=== PATIENT | female | born 1995 | race Native Hawaiian/Other Pacific Islander ===

== ENCOUNTER 2020-03-19 21:43 | Emergency (ER) | payer MEDICAID ==
[2020-03-19 22:14] LABS: Basophils % (Auto) 0.4 % (0.0-1.8); Eosinophils # (Auto) 0.1 K/mm3 (0.0-0.4); Eosinophils % (Auto) 1.4 % (0.0-4.3); Hematocrit 37.8 % (30.3-42.9); Hemoglobin 11.8 gm/dl (10.1-14.3); Lymphocytes # (Auto) 3.7 K/mm3 (1.2-5.4); Lymphocytes % (Auto) 34.5 % (13.4-35.0); Mean Corpuscular HGB Conc 31 % (30-34); Mean Corpuscular Volume 80 fl (79-97); Monocytes # (Auto) 0.6 K/mm3 (0.0-0.8); Monocytes % (Auto) 5.8 % (0.0-7.3); Platelet Count 274 K/mm3 (140-440); Red Blood Count 4.74 M/mm3 (3.65-5.03); Red Cell Distribution Width 14.5 % (13.2-15.2)
[2020-03-19] MEDS ORDERED: ACETAMINOPHEN 500 MG TAB PO ONE (22:18)
--- NOTE | 2020-03-19 22:29 | Emergency Department Report ---
ED Female HPI - General Chief complaint: Vaginal Bleeding Stated complaint: ABD PAIN/6WKS PREG/BLEEDING Source: patient Mode of arrival: Ambulatory Limitations: No Limitations - History of Present Illness Initial comments: Patient is A0 24-year-old female is approximately 5 weeks gestation and with no past medical history who presents to the ED with complaint of acute onset persistent pelvic pain with vaginal bleeding for the last 10 hours, bleeding being heavy in the last 3 hours prior to arrival. Patient states that the pain is sharp, persistent and crampy. Patient denies fall, heavy lifting, traumatic injury, fever, chills, nausea, vomiting, diarrhea, dysuria, urinary frequency and urgency, vaginal discharge, cough, sore throat, chest pain, low back pain or shortness of breath. MD Complaint: vaginal bleeding, pelvic pain -: Sudden, hour(s) (10) Location: suprapubic Radiation: non-radiating Severity: moderate Severity scale (0 -10): 5 Quality: cramping, sharp, aching Consistency: intermittent Improves with: none Worsens with: none Are you Now?: Yes (Approx 6 weeks gestation) Associated Symptoms: denies other symptoms, vaginal bleeding, abdominal pain. denies: nausea/vomiting, fever/chills, headaches, loss of appetite, dysuria, chad rtness of breath, syncope, weakness - Related Data Sexually active: Yes : 1 Para: 0 A: 0 Previous Rx's Medication Instructions Recorded Last Taken Type Acetaminophen [Mapap] 500 mg PO Q6H PRN #30 capsule 03/20/20 Unknown Rx Allergies Allergy/AdvReac Type Severity Reaction Status Date / Time No Known Allergies Allergy Verified 03/19/20 21:50 ED Review of Systems ROS: Stated complaint: ABD PAIN/6WKS PREG/BLEEDING Other details as noted in HPI Constitutional: denies: chills, fever Eyes: denies: eye pain, eye discharge, vision change ENT: denies: ear pain, throat pain Respiratory: denies: cough, shortness of breath, wheezing Cardiovascular: denies: chest pain, palpitations Endocrine: no symptoms reported Gastrointestinal: abdominal pain (Suprapubic pain). denies: nausea, vomiting, diarrhea Genitourinary: abnormal menses (Vaginal bleeding). denies: urgency, dysuria, discharge Musculoskeletal: denies: back pain, joint swelling, arthralgia Skin: denies: rash, lesions Neurological: denies: headache, weakness, paresthesias Psychiatric: denies: anxiety, depression Hematological/Lymphatic: denies: easy bleeding, easy bruising ED Past Medical Hx - Past Medical History Previous Medical History?: No - Surgical History Past Surgical History?: No - Social History Smoking Status: Never Smoker Substance Use Type: None - Medications Home Medications: Home Medications Medication Instructions Recorded Confirmed Last Taken Type Acetaminophen [Mapap] 500 mg PO Q6H PRN #30 capsule 03/20/20 Unknown Rx ED Physical Exam - General Limitations: No Limitations General appearance: alert, in no apparent distress - Head Head exam: Present: atraumatic, normocephalic, normal inspection - Eye Eye exam: Present: normal appearance, PERRL, EOMI Pupils: Present: normal accommodation - ENT ENT exam: Present: normal exam, normal orophraynx, mucous membranes moist, TM's normal bilaterally, normal external ear exam - Neck Neck exam: Present: normal inspection, full ROM - Respiratory Respiratory exam: Present: normal lung sounds bilaterally. Absent: respiratory distress, wheezes, rales, rhonchi, chest wall tenderness, accessory muscle use, prolonged expiratory - Cardiovascular Cardiovascular Exam: Present: regular rate, normal rhythm, normal heart sounds. Absent: systolic murmur, diastolic murmur, rubs, gallop - GI/Abdominal GI/Abdominal exam: Present: soft, tenderness (Palpable mild suprapubic tenderness), normal bowel sounds. Absent: guarding, rebound, hyperactive bowel sounds, hypoactive bowel sounds - Bi-manual exam: Present: other (Pelvic exam deferred) - Extremities Exam Extremities exam: Present: normal inspection, full ROM, normal capillary refill - Back Exam Back exam: Present: normal inspection, full ROM. Absent: tenderness, CVA tenderness (R), CVA tenderness (L), muscle spasm, vertebral tenderness - Neurological Exam Neurological exam: Present: alert, oriented X3, CN II-XII intact, normal gait, reflexes normal - Psychiatric Psychiatric exam: Present: normal affect, normal mood - Skin Skin exam: Present: warm, dry, intact, normal color. Absent: rash ED Course Vital Signs 03/19/20 21:47 Temperature 98.0 F Pulse Rate 77 Respiratory 16 Rate Blood Pressure 116/75 O2 Sat by Pulse 100 Oximetry ED Medical Decision Making - Lab Data Result diagrams: 03/19/20 21:51 03/19/20 22:42 - Radiology Data Radiology results: report reviewed, image reviewed Findings [facility] [address] [place] [address] Ultrasound Report Signed Patient: NIMA JARQUIN MR#: [id number] : 1995 Acct:[id number] Age/Sex: 24 / F ADM Date: 03/19/20 Loc: ED Attending Dr: Ordering Physician: EDER GALLEGO Date of Service: 03/19/20 Procedure(s): US OB transvaginal Accession Number(s): [id number] cc: EDER GALLEGO ULTRASOUND OBSTETRIC Indication: Pelvic pain, vaginal bleeding, Findings: There is a single, living intrauterine . Gestational sac = 6 cm = 5 weeks, 2 day(s). No pole identified. The ovaries are normal. There is no free fluid. Impression: Early intrauterine gestational sac, as above. Close attention on follow-up recommended. Signer Name: Gage Sheffield MD Signed: 03/20/2020 12:12 AM Workstation Name: [id number] Transcribed By: BC Dictated By: Gage Sheffield MD Electronically Authenticated By: Gage Sheffield MD Signed Date/Time: 03/20/2011 DD/ TD/TT: - Medical Decision Making This is A0 24-year-old female is approximately 5 weeks gestation and with no past medical history who presents to the ED with complaint of acute onset persistent pelvic pain with vaginal bleeding for the last 10 hours, bleeding being heavy in the last 3 hours prior to arrival. Patient states that the pain is sharp, persistent and crampy. In the ED, patient is alert and oriented x3 and is not in any distress but appears to be uncomfortable in pain. Patient was treated for pain with Tylenol in the ED and lab test results were reviewed and showed hCG quant of 1247. The rest of the lab test results were nonactionable. The transvaginal ultrasound showed a single, living intrauterine , with no pole identified. The gestational sac measures approximately 6 cm, consistent with approximately 5 weeks, 2 day(s). The ovaries are normal. There is no free fluid. Close attention on follow-up recommended. On reevaluation, patient's pain is well controlled with medications. Patient was discharged home and advised to take Tylenol as needed for pain and to maintain a complete pelvic rest with no physical or strenuous or sexual activity and to follow-up with the LITERATURE PROFESSOR physician or return to the ED within 48 hours for serial hCG quant studies repeat. Patient was otherwise advised to return to the ED immediately if symptoms get worse. - Differential Diagnosis Ectopic ; Threatened miscarriage; UTI; Subchorionic bleed; Cysts Critical care attestation.: If time is entered above; I have spent that time in minutes in the direct care of this critically ill patient, excluding procedure time. ED Disposition Clinical Impression: Threatened miscarriage in early Abdominal pain in Qualifiers: Trimester: first trimester Qualified Code(s): O26.891 - Other specified related conditions, first trimester Disposition: TO HOME OR SELFCARE Is pt being admited?: No Does the pt Need Aspirin: No Condition: Stable Instructions: Threatened Miscarriage (ED), Abdominal Pain in (ED) Additional Instructions: Maintain a complete pelvic rest with no strenuous or physical or sexual activity. Take Tylenol as needed for pain and follow-up with your LITERATURE PROFESSOR physician or return to the ED within 48 hours for repeat serial hCG quant studies to ascertain the viability of the . Otherwise return to the ED immediately if symptoms get worse. Prescriptions: Acetaminophen [Mapap] 500 mg PO Q6H PRN #30 capsule PRN Reason: Pain , Severe (7-10) Referrals: LANE REDDY MD [Staff Physician] - 2-3 Days (FOLLOW UP WITHIN 48 HOURS FOR SERIAL REPEAT HCG QUANT STUDIES) Time of Disposition: 00:44 Print Language: PASHTO
[2020-03-19 23:09] LABS: Bilirubin,Urine NEG (Negative); Blood,Urine LG (Negative); Color,Urine Straw (Yellow); Mucus,Urine FEW /HPF; Protein,Urine <15 mg/dL mg/dL (Negative); Urobilinogen,Urine < 2.0 mg/dL (<2.0)
--- NOTE | 2020-03-20 00:16 | Ultrasound Report ---
ULTRASOUND OBSTETRIC Indication: Pelvic pain, vaginal bleeding, Findings: There is a single, living intrauterine . Gestational sac = 6 cm = 5 weeks, 2 day(s). No pole identified. The ovaries are normal. There is no free fluid. Impression: Early intrauterine gestational sac, as above. Close attention on follow-up recommended. Signer Name: Gage Sheffield MD Signed: 03/20/2020 12:12 AM Workstation Name: [id number]
[2020-03-20 00:43] VITALS: BP 116/75
[2020-03-20 00:48] LABS: Alanine Aminotransferase 33 units/L (7-56); Albumin 4.5 g/dL (3.9-5); BUN/Creatinine Ratio 13; Blood Urea Nitrogen 8 mg/dL (7-17); Calcium 8.8 mg/dL (8.4-10.2); Hemolysis Index 3
== END 2020-03-20 01:10 | disposition home or self-care (01) ==
LOC: ED 21:43
DX: O20.0 Threatened abortion (principal); O26.891 Other specified pregnancy related conditions, first trimester; Z79.899 Other long term (current) drug therapy; Z3A.01 Less than 8 weeks gestation of pregnancy
CPT/HCPCS: 36415; 76801; 76817; 80053; 81001; 84702; 85025; 86900; 86901

== ENCOUNTER 2021-04-25 13:49 | Outpatient (CLI) | payer MEDICAID ==
[2021-04-25 14:22] VITALS: BP 100/60
[2021-04-25] MEDS ORDERED: LACTATED RINGERS 1,000 ML IV ONE (14:22)
[2021-04-25 14:48] LABS: Bilirubin,Urine NEG (Negative); Blood,Urine NEG (Negative); Color,Urine Colorless (Yellow); Protein,Urine <15 mg/dL mg/dL (Negative); RBC,Urine < 1.0 /HPF (0.0-6.0); Urobilinogen,Urine < 2.0 mg/dL (<2.0); WBC,Urine < 1.0 /HPF (0.0-6.0)
== END 2021-04-25 15:35 | disposition home or self-care (01) ==
LOC: TRG 13:49 → APU 13:53 → TRG 15:35
PROVIDERS: ATTEND Obstetrics & Gynecology
DX: O36.8120 Decreased fetal movements, second trimester, not applicable or unspecified (principal); Z3A.26 26 weeks gestation of pregnancy
CPT/HCPCS: 59025; 81001

== ENCOUNTER 2021-07-25 09:09 | Outpatient (CLI) | payer MEDICAID ==
[2021-07-25 10:36] VITALS: BP 114/79
== END 2021-07-25 13:23 | disposition home or self-care (01) ==
LOC: TRG 09:09 → APU 09:11 → TRG 13:23
PROVIDERS: ATTEND Obstetrics & Gynecology
DX: Z34.93 Encounter for supervision of normal pregnancy, unspecified, third trimester (principal); Z3A.39 39 weeks gestation of pregnancy
CPT/HCPCS: 59020

== ENCOUNTER 2021-07-25 22:27 | Inpatient (IN) | payer MEDICAID ==
[2021-07-26] MEDS ORDERED: LIDOCAINE (2%) 20 MG/1 ML VIAL 20 ML MDV INFILTRATI ONE ×2 (01:49→13:44)
[2021-07-26] MEDS ORDERED: fentaNYL 100 MCG/2 ML INJ IV PRN (01:49)
[2021-07-26] MEDS ORDERED: miSOPROStol 200 MCG TAB PR PRN (01:49)
[2021-07-26] MEDS ORDERED: MINERAL OIL 30 ML ORAL LIQD PO PRN (01:49)
[2021-07-26] MEDS ORDERED: METHYLERGONOVINE MALEATE 0.2 MG/ML VIAL IM PRN (01:49)
[2021-07-26] MEDS ORDERED: ONDANSETRON 4 MG/2 ML INJ IV PRN ×2 (01:49→03:39)
[2021-07-26] MEDS ORDERED: LOPERAMIDE 2 MG CAP PO PRN (01:49)
[2021-07-26] MEDS ORDERED: ACETAMINOPHEN 325 MG TAB PO PRN (01:49)
[2021-07-26] MEDS ORDERED: BUTORPHANOL 2 MG/1 ML INJ IV PRN (01:49)
[2021-07-26] MEDS ORDERED: ePHEDrine SULFATE 50 MG/1 ML INJ IV PRN ×2 (01:49→03:39)
[2021-07-26] MEDS ORDERED: OXYTOCIN 10 UNIT/1 ML INJ IM PRN (01:49)
[2021-07-26] MEDS ORDERED: TERBUTALINE 1 MG/1 ML INJ SUB-Q PRN (01:49)
[2021-07-26] MEDS ORDERED: AMPICILLIN/NS 2 GM/100 ML 2 GM/100 ML BAG IV ONE (01:49)
[2021-07-26] MEDS ORDERED: CARBOPROST TROMETHAMINE 250 MCG/1 ML INJ IM PRN (01:49)
[2021-07-26] MEDS ORDERED: OXYTOCIN DRIP 30 UNITS/500 ML BAG IV SCH (02:00)
[2021-07-26 02:40] LABS: Hematocrit 38.3 % (30.3-42.9); Mean Corpuscular HGB Conc 34 % (30-34); Mean Corpuscular Volume 81 fl (79-97); Platelet Count 172 K/mm3 (140-440); Red Blood Count 4.72 M/mm3 (3.65-5.03)
[2021-07-26] MEDS: LACTATED RINGERS 1,000 ML IV SCH ×3 (02:58→06:17)
[2021-07-26] MEDS ORDERED: diphenhydrAMINE 50 MG/ML VIAL IV PRN (03:39)
[2021-07-26] MEDS ORDERED: NALOXONE 2 MG/2 ML INJ IV PRN (03:39)
[2021-07-26] MEDS ORDERED: LACTATED RINGERS 250 ML IV SOLN IV ONE (03:39)
[2021-07-26] MEDS ORDERED: NalbUPHINE 10 MG/1 ML INJ IV PRN (03:39)
--- NOTE | 2021-07-26 03:40 | Anesthesia Consultation ---
Anesthesia Consult and Med Hx Date of service: 07/26/21 - Airway Anesthetic Teeth Evaluation: Good ROM Head & Neck: Adequate Mental/Hyoid Distance: Adequate Mallampati Class: Class II Intubation Access Assessment: Probably Good - Pulmonary Exam CTA: Yes - Cardiac Exam Cardiac Exam: RRR - Pre-Operative Health Status ASA Pre-Surgery Classification: ASA2 Proposed Anesthetic Plan: Epidural - Pulmonary Hx Smoking: No Hx Asthma: No COPD: No Hx Pneumonia: No Hx Sleep Apnea: No - Cardiovascular System Hx Hypertension: No Hx Heart Attack/AMI: No Hx Angina: No - Central Nervous System Hx Seizures: No Hx Psychiatric Problems: No - Gastrointestinal Hx Gastroesophageal Reflux Disease: No - Endocrine Hx Renal Disease: No Hx End Stage Renal Disease: No Hx Liver Disease: No Hx Insulin Dependent Diabetes: No Hx Non-Insulin Dependent Diabetes: No Hx Hypothyroidism: No Hx Hyperthyroidism: No - Hematic Hx Anemia: No Hx Sickle Cell Disease: No - Other Systems Hx Alcohol Use: No
--- NOTE | 2021-07-26 03:42 | Progress Note ---
Labor Epidural - Labor Epidural Start Time: 03:24 Stop Time: 03:34 Performed by:: HINA STAFFORD Procedure: Patient is requesting epidural for labor and pain. H&P, labs were reviewed. Patient IDed, H&P reviewed, all questions and concerns were answered, and consent was signed. Timeout was performed at bedside. Patient in sitting position. Sterile prep and drape was performed. 3ml of 1% lidocaine skin wheal at L[3]- L [4]. 18-gauge [employer] epidural needle was advanced to loss of resistance with air technique 5cm. Negative CSF negative blood. Epidural catheter advanced to [10] centimeters. [negative] Aspiration [negative] test dose. Sterile dressing applied. Patient tolerated procedure.
[2021-07-26] MEDS ORDERED: fentaNYL-BUPIV 2 MCG/ML-0.125% 200 MCG/100 ML BAG EPIDURAL SCH (04:00)
[2021-07-26] MEDS ORDERED: AMPICILLIN/NS 1 GM/50 ML 1 GM/50 ML BAG ONE (07:01)
[2021-07-26] MEDS ORDERED: AMPICILLIN/NS 1 GM/50 ML 1 GM/50 ML BAG IV SCH (11:00)
[2021-07-26] MEDS ORDERED: LANOLIN/ZINC/DIMETHICONE (LANSINOH) 7 GM TP PRN (14:27)
[2021-07-26] MEDS ORDERED: diphenhydrAMINE 25 MG CAP PO PRN (14:27)
[2021-07-26] MEDS ORDERED: PROMETHAZINE 25 MG TAB PO PRN (14:27)
[2021-07-26] MEDS ORDERED: MAGNESIUM HYDROXIDE (MOM) ORAL LIQD UDC PO PRN (14:27)
--- NOTE | 2021-07-26 14:36 | History and Physical Report ---
History of Present Illness Date of examination: 07/26/21 Date of admission: 07/26/21 01:49 Chief complaint: Active labor History of present illness: 26 yo, @ 40 wks, initiated care with [place] [facility] at 11.4 wks gestation. Her has been uncomplicated. She presents to [facility] with reports of frequent painful ctxs and was found to have cervical dilation of 5 cms. Reports +FM. Denies any VB or LOF. Labs: A+, antibody negative; rubella immune; VDRL negative; HBsAg negative; HIV negative; HCv ab negative; GC/Chlamydia/Trich negative; early 1 hr gtt 97; 3rd trimester 1 hr gtt 126; GBS negative. Past History Past Medical History: no pertinent history Past Surgical History: no surgical history Family/Genetic History: diabetes, hypertension Social history: single, Lives alone, full code. denies: smoking, alcohol abuse, prescription drug abuse, IV drug use - Obstetrical History Expected Date of Delivery: 07/26/21 Actual Gestation: 40 Week(s) 0 Day(s) : 2 Para: 1 Hx # Term Pregnancies: 0 Number of Pregnancies: 0 Spontaneous Abortions: 1 Induced : 0 Number of Living Children: 0 Medications and Allergies Allergies Allergy/AdvReac Type Severity Reaction Status Date / Time No Known Allergies Allergy Verified 03/19/20 21:50 Home Medications Medication Instructions Recorded Confirmed Last Taken Type Acetaminophen [Mapap] 500 mg PO Q6H PRN #30 capsule 03/20/20 Unknown Rx Active Meds: Active Medications Acetaminophen (Acetaminophen 325 Mg Tab) 650 mg PO Q4H PRN PRN Reason: Pain, Mild (1-3) Butorphanol Tartrate (Butorphanol 2 Mg/1 Ml Inj) 1 mg IV Q2H PRN PRN Reason: Pain, Moderate(4-6) LABOR PAIN Carboprost Tromethamine (Carboprost Tromethamine 250 Mcg/1 Ml Inj) 250 mcg IM ONCE PRN PRN Reason: Uterine Bleeding Diphenhydramine HCl (Diphenhydramine 50 Mg/Ml Vial) 12.5 mg IV Q2H PRN PRN Reason: Itching Ephedrine Sulfate (Ephedrine Sulfate 50 Mg/1 Ml Inj) 10 mg IV Q2M PRN PRN Reason: Hypotension Fentanyl (Fentanyl 100 Mcg/2 Ml Inj) 100 mcg IV Q2H PRN PRN Reason: Pain,Severe (7-10) LABOR PAIN Lactated Ringer's (Lactated Ringers) 1,000 mls @ 125 mls/hr IV DIRECT SONALI Last Admin: 07/26/21 06:17 Dose: 125 mls/hr Documented by: Oxytocin/Sodium Chloride (Pitocin/Ns 30 Unit/500ml) 30 units in 500 mls @ 40 mls/hr IV TITR SONALI; Protocol Last Titration: 07/26/21 10:25 Dose: 4 ml/hr, 4 mls/hr Documented by: Fentanyl/Bupivacaine/Sodium Chlor (Fentanyl-Bupiv 2 Mcg/Ml-0.125%) 200 mcg in 100 mls @ 12 mls/hr EPIDURAL TITR SONALI; Protocol Last Admin: 07/26/21 03:54 Dose: 12 mls/hr Documented by: Loperamide HCl (Loperamide 2 Mg Cap) 2 mg PO ONCE PRN PRN Reason: give with Hemabate Methylergonovine Maleate (Methylergonovine Maleate 0.2 Mg/Ml Vial) 0.2 mg IM ONCE PRN PRN Reason: Uterine Bleeding Mineral Oil (Mineral Oil 30 Ml Oral Liqd) 30 ml PO QHS PRN PRN Reason: Constipation Misoprostol (Misoprostol 200 Mcg Tab) 800 mcg NH ONCE PRN PRN Reason: Uterine Bleeding Nalbuphine HCl (Nalbuphine 10 Mg/1 Ml Inj) 2.5 mg IV Q2H PRN PRN Reason: Itching Naloxone HCl (Naloxone 2 Mg/2 Ml Inj) 0.2 mg IV Q5M PRN PRN Reason: Respiratory sedation Ondansetron HCl (Ondansetron 4 Mg/2 Ml Inj) 4 mg IV Q8H PRN PRN Reason: Nausea And Vomiting Oxytocin (Oxytocin 10 Unit/1 Ml Inj) 10 unit IM ONCE PRN PRN Reason: Uterine Bleeding Terbutaline Sulfate (Terbutaline 1 Mg/1 Ml Inj) 0.25 mg SUB-Q ONCE PRN PRN Reason: Hyperstimulation/Hypertonicity Review of Systems All systems: negative Genitourinary: contractions - Vital Signs Vital signs: Vital Signs Pulse Pulse Ox 70 100 07/25/21 23:09 07/25/21 23:09 Temp Pulse Resp BP Pulse Ox 98.1 F 94 H 18 131/84 99 07/26/21 03:47 07/26/21 14:25 07/26/21 03:47 07/26/21 14:07 07/26/21 14:25 - Physical Exam Breasts: Positive: normal Cardiovascular: Regular rate Lungs: Positive: Normal air movement Genitourinary (Female): Positive: normal external genitalia, normal perenium Vagina: Positive: normal moisture Uterus: Positive: enlarged (S=D) Anus/Rectum: Positive: normal perianal skin Deep Tendon Reflex Grade: Normal +2 - Obstetrical FHR: category 1 Uterine Contraction Monitor Mode: External Cervical Dilatation: 10 (vertex) Cervical Effacement Percentage: 100 station: +1 Uterine Contraction Pattern: Regular Uterine Tone Measurement Phase: Resting Uterine Contraction Intensity: Strong/Firm Results Result Diagrams: 07/26/21 02:15 Abnormal lab results 07/26/21 Range/Units 02:15 WBC 11.2 H (4.5-11.0) K/mm3 All other labs normal. Assessment and Plan - Patient Problems (1) Active labor at term Current Visit: Yes Status: Acute Plan to address problem: Admit to L&D Epidural as desired Anticipate
--- NOTE | 2021-07-26 14:54 | Procedure Note ---
OB Delivery Note - Delivery Date of Delivery: 07/26/21 (1334) Surgeon: GUNJAN RODRIGEZ (CNM) Estimated blood loss: 200cc - Vaginal Delivery presentation: vertex Delivery position: OA (NAHEED) Intrapartum events: meconium (moderate stained fluid and term meconium) Delivery induction: none Delivery augmentation: rupture of membranes (SROM @ 1320) Delivery monitor: external FHT, external uterine Route of delivery: Delivery placenta: spontaneous (1338, samson, disposed) Delivery cord: 3 umbilical vessels Episiotomy: none Delivery laceration: 2nd degree (perineum, repaired), other (right favio- urethral, not repaired) Delivery repair: vicryl (3.0- CT -1; 3.0 - SH) Anesthesia: epidural Delivery comments: of viable alert quiet male placed directly to maternal abdomen. Spontaneous cry produced with manual stimulation and drying. Cord double clamped, cut by FOB after cessation of pulsation. Placenta spontaneously delivered, samson, disposed per hospital policy. Uterus firm @ U-3, hemostasis maintained. Mother and baby safe, stable and left in care of RN. - A at 1 minute: 8 at 5 minutes: 9 Infant Gender: Male (Weight: 3180 gms (7lbs) 19 3/4 inches)
[2021-07-26] MEDS: IBUPROFEN 600 MG TAB PO SCH ×2 (18:50→23:53)
[2021-07-26] MEDS: WITCH HAZEL/ GLYCERIN PAD TP PRN (20:26)
[2021-07-26] MEDS: oxyCODONE /ACETAMINOPHEN 5-325MG TAB PO PRN (20:35)
[2021-07-27 04:26] LABS: Hematocrit 30.8 % (30.3-42.9); Hemoglobin 10.5 gm/dl (10.1-14.3)
--- NOTE | 2021-07-27 04:49 | Progress Note ---
Assessment and Plan - Patient Problems (1) Status post normal vaginal delivery Current Visit: Yes Status: Acute Plan to address problem: Continue routine PP orders Anticipate d/c home tomorrow (2) Anemia Current Visit: Yes Status: Acute Qualifiers: Anemia type: other cause Other causes of anemia: acute posthemorrhagic Qualified Code(s): D62 - Acute posthemorrhagic anemia Plan to address problem: Asymptomatic Increase iron rich foods into diet Subjective - Subjective Date of service: 07/27/21 Principal diagnosis: S/P ; PPD1 Interval history: 26 yo, @ 40 wks, initiated care with [place] [facility] at 11.4 wks gestation. Her has been uncomplicated. She presents to [facility] with reports of frequent painful ctxs and was found to have cervical dilation of 5 cms. Reports +FM. Denies any VB or LOF. Labs: A+, antibody negative; rubella immune; VDRL negative; HBsAg negative; HIV negative; HCv ab negative; GC/Chlamydia/Trich negative; early 1 hr gtt 97; 3rd trimester 1 hr gtt 126; GBS negative. Patient reports: appetite normal, voiding normally, pain well controlled, flatus, ambulating normally [place]: doing well, bottle feeding (and ) Objective - Vital Signs Latest vital signs: Vital Signs Temp Pulse Resp BP BP Pulse Ox Pulse Ox 07/27/21 00:53 18 07/26/21 23:59 98.0 F 74 16 121/78 100 07/26/21 23:53 18 07/26/21 21:35 18 07/26/21 20:35 18 07/26/21 20:13 98.0 F 76 18 106/74 97 07/26/21 20:00 100 07/26/21 19:50 18 07/26/21 18:13 98 07/26/21 16:30 75 20 116/76 98 07/26/21 15:46 75 98 07/26/21 15:41 76 100 07/26/21 15:37 71 130/76 07/26/21 15:36 82 99 07/26/21 15:30 80 100 07/26/21 15:27 80 93 07/26/21 15:25 74 100 07/26/21 15:23 80 137/70 07/26/21 15:20 80 98 07/26/21 15:15 84 96 07/26/21 15:14 82 94 07/26/21 15:10 87 98 07/26/21 15:05 81 97 07/26/21 15:03 81 94 07/26/21 15:00 83 98 07/26/21 14:58 76 88 07/26/21 14:55 80 99 07/26/21 14:53 81 128/82 07/26/21 14:50 83 97 07/26/21 14:48 87 93 07/26/21 14:45 75 98 07/26/21 14:40 84 97 07/26/21 14:37 80 137/82 07/26/21 14:35 83 99 07/26/21 14:32 80 94 07/26/21 14:30 80 139/86 99 07/26/21 14:25 94 H 99 07/26/21 14:22 87 94 07/26/21 14:20 88 97 07/26/21 14:15 90 99 07/26/21 14:10 89 98 07/26/21 14:07 95 H 131/84 07/26/21 14:05 112 H 97 07/26/21 14:03 102 H 94 07/26/21 14:00 88 97 07/26/21 13:55 91 H 97 07/26/21 13:52 87 114/83 07/26/21 13:50 89 96 07/26/21 13:45 77 100 07/26/21 13:40 86 96 07/26/21 13:35 110 H 99 07/26/21 13:30 102 H 96 07/26/21 13:25 74 99 07/26/21 13:20 92 H 99 07/26/21 13:15 96 H 98 07/26/21 13:10 79 98 07/26/21 13:05 82 98 07/26/21 13:00 72 99 07/26/21 12:55 79 100 07/26/21 12:54 59 L 93 07/26/21 12:50 84 98 07/26/21 12:49 90 91 07/26/21 12:45 114 H 99 07/26/21 12:40 81 100 07/26/21 12:35 84 98 07/26/21 12:33 79 94 07/26/21 12:32 89 127/88 07/26/21 12:30 81 99 07/26/21 12:25 76 99 07/26/21 12:20 76 98 07/26/21 12:15 74 99 07/26/21 12:10 69 97 07/26/21 12:05 67 99 07/26/21 12:02 73 130/85 07/26/21 12:00 70 99 07/26/21 11:55 71 99 07/26/21 11:50 72 100 07/26/21 11:45 70 100 07/26/21 11:42 77 94 07/26/21 11:40 71 98 07/26/21 11:35 60 98 07/26/21 11:33 58 L 118/79 07/26/21 11:30 63 99 07/26/21 11:25 60 99 07/26/21 11:20 59 L 99 07/26/21 11:15 58 L 98 07/26/21 11:10 66 98 07/26/21 11:05 61 99 07/26/21 11:01 62 138/83 07/26/21 11:00 67 99 07/26/21 10:55 62 95 07/26/21 10:50 73 98 07/26/21 10:45 98 H 98 07/26/21 10:44 81 89 07/26/21 10:40 66 99 07/26/21 10:35 79 98 07/26/21 10:31 71 136/82 07/26/21 10:30 68 99 07/26/21 10:25 67 98 07/26/21 10:20 71 98 07/26/21 10:15 63 98 07/26/21 10:10 68 98 07/26/21 10:05 71 98 07/26/21 10:01 72 120/72 07/26/21 10:00 71 96 07/26/21 09:59 78 93 07/26/21 09:55 74 99 07/26/21 09:50 61 98 07/26/21 09:45 61 98 07/26/21 09:40 60 98 07/26/21 09:35 64 98 07/26/21 09:31 70 114/75 07/26/21 09:30 79 96 07/26/21 09:25 59 L 97 07/26/21 09:20 64 97 07/26/21 09:15 63 98 07/26/21 09:10 64 99 07/26/21 09:05 61 98 07/26/21 09:01 65 110/70 07/26/21 09:00 62 98 07/26/21 08:55 75 96 07/26/21 08:50 66 97 07/26/21 08:45 67 100 98 07/26/21 08:40 66 96 07/26/21 08:35 64 97 07/26/21 08:31 65 102/66 07/26/21 08:30 67 98 07/26/21 08:25 65 97 07/26/21 08:20 69 97 07/26/21 08:15 70 97 07/26/21 08:10 64 97 07/26/21 08:05 67 97 07/26/21 08:01 67 106/57 07/26/21 08:00 73 97 07/26/21 07:55 73 98 07/26/21 07:50 65 98 07/26/21 07:45 68 99 07/26/21 07:40 73 98 07/26/21 07:35 71 98 07/26/21 07:32 62 120/77 07/26/21 07:30 67 98 07/26/21 07:25 68 98 07/26/21 07:20 72 99 07/26/21 07:15 66 98 07/26/21 07:10 65 98 07/26/21 07:05 68 98 07/26/21 07:02 69 114/75 07/26/21 07:00 64 97 07/26/21 06:55 75 97 07/26/21 06:50 64 97 07/26/21 06:45 65 97 07/26/21 06:40 65 97 07/26/21 06:35 66 96 07/26/21 06:31 71 90/50 07/26/21 06:30 69 97 07/26/21 06:25 79 97 07/26/21 06:20 61 95 07/26/21 06:15 64 96 07/26/21 06:10 65 95 07/26/21 06:05 65 97 07/26/21 06:02 62 103/56 07/26/21 06:00 62 96 07/26/21 05:55 60 96 07/26/21 05:53 70 94 07/26/21 05:50 61 95 07/26/21 05:45 74 96 07/26/21 05:43 72 94 07/26/21 05:40 77 97 07/26/21 05:35 70 97 07/26/21 05:32 80 90/56 93 07/26/21 05:30 79 95 07/26/21 05:26 80 94 07/26/21 05:25 75 95 07/26/21 05:21 62 92 07/26/21 05:20 66 96 07/26/21 05:15 65 96 07/26/21 05:10 69 95 07/26/21 05:05 74 95 07/26/21 05:02 63 92/52 07/26/21 05:00 85 96 07/26/21 04:55 64 96 07/26/21 04:50 68 96 07/26/21 04:45 66 96 Intake and Output 07/26/21 07/26/21 07/27/21 15:59 23:59 07:59 Intake Total 1 200 120 Output Total 400 1200 Balance -399 -1000 120 Intake: IV 1 PITOCin/NS 30 UNIT/500ML 1 30 units In 500 ml @ 40 mls/hr IV TITR SONALI Rx#: [id number] Oral 200 Intake, Free Water 120 Output: Urine 400 1200 Indwelling Catheter 400 Void 1200 Other: Total, Intake Amount 200 Total, Output Amount 400 800 # Voids Void 1 Estimated Blood Loss 200 - Exam Breasts: Present: normal Cardiovascular: Present: Regular rate Abdomen: Present: soft Uterus: Present: firm, fundal height below umbilicus (U-3) Extremities: Present: normal Incision: Present: other (2nd degree laceration, Rt favio-urethral laceration both healing as expected)
--- NOTE | 2021-07-27 04:59 | Discharge Summary ---
Providers - Providers Date of Admission: 07/26/21 01:49 Date of discharge: 07/28/21 Attending physician: LANE REDDY Primary care physician: LANE REDDY Hospitalization Reason for admission: active labor Delivery: Episiotomy: none Laceration: 2nd degree (healing as expected), other (right periurethral lace ration, healing as expected) Other procedures: none complications: none Discharge diagnosis: IUP at term delivered [place] baby: male Hospital course: 26 yo, @ 40 wks, initiated care with [facility]'s [facility] Worker at 11.4 wks gestation. Her has been uncomplicated. She presents to [facility] with reports of frequent painful ctxs and was found to have cervical dilation of 5 cms. Reports +FM. Denies any VB or LOF. Labs: A+, antibody negative; rubella immune; VDRL negative; HBsAg negative; HIV negative; HCv ab negative; GC/Chlamydia/Trich negative; early 1 hr gtt 97; 3rd trimester 1 hr gtt 126; GBS negative. Patient reports: appetite normal, voiding normally, pain well controlled, flatus, ambulating normally : doing well, bottle feeding (and ) Condition at discharge: Good Disposition: 01 HOME / SELF CARE / HOMELESS - Discharge Diagnoses (1) Status post normal vaginal delivery Status: Acute (2) Anemia Status: Acute Qualifiers: Anemia type: other cause Other causes of anemia: acute posthemorrhagic Qualified Code(s): D62 - Acute posthemorrhagic anemia Comment: Asymptomatic Increase iron rich foods into diet Plan - Discharge Medications Prescriptions: Ibuprofen [Motrin 600 MG tab] 600 mg PO Q8H 7 Days #21 tablet - Provider Discharge Summary Activity: routine, no sex for 6 weeks, no heavy lifting 4 weeks, no strenuous exercise Diet: other (Iron rich diet) Instructions: routine Additional instructions: [] Smoking cessation referral if applicable(refer to patient education folder for contact #) [] Refer to [facility] Booklet Call your doctor immediately for: * Fever > 100.5 * Heavy vaginal bleeding ( >1 pad per hour) * Severe persistent headache * Shortness of breath * Reddened, hot, painful area to leg or breast * Drainage or odor from incision. * Keep incision clean and dry at all times and follow doctor's instructions regarding bathing/showering - Follow up plan Follow up: LANE REDDY MD [Primary Care Provider] - 6 Weeks
[2021-07-27] MEDS: IBUPROFEN 600 MG TAB PO SCH ×4 (05:40→21:07)
[2021-07-27] MEDS ORDERED: PRENATAL VIT27-FE FUMARATE-FOLIC ACID VIT TAB PO SCH (10:00)
--- NOTE | 2021-07-27 12:11 | Post Anesthesia Evaluation ---
- Post Anesthesia Evaluation Patient Participated: Yes Airway Patent: Yes Stable Respiratory Function: Yes Nausea/Vomiting: No Temp > 96.8F: Yes Pain Manageable: Yes Adequeate Hydration: Yes Anesthesia Complications: No Block Receding Appropriately: Yes Patient on Ventilator: No
[2021-07-27] MEDS: oxyCODONE /ACETAMINOPHEN 5-325MG TAB PO PRN (14:32)
[2021-07-28] MEDS: WITCH HAZEL/ GLYCERIN PAD TP PRN (02:38)
[2021-07-28] MEDS: oxyCODONE /ACETAMINOPHEN 5-325MG TAB PO PRN (03:02)
[2021-07-28] MEDS: IBUPROFEN 600 MG TAB PO SCH (10:36)
[2021-07-28 17:27] VITALS: BP 117/81
== END 2021-07-28 17:55 | disposition home or self-care (01) | DRG 775 ==
LOC: TRG 22:27 → APU 22:59 → LD 07-26 01:49 → TRG 07-26 01:49 → OB 07-26 16:35
PROVIDERS: ADMIT Obstetrics & Gynecology; ATTEND Obstetrics & Gynecology
PROC: 10E0XZZ Delivery of Products of Conception, External Approach (ICD-10-PCS; principal; 2021-07-26)
PROC: 0KQM0ZZ Repair Perineum Muscle, Open Approach (ICD-10-PCS; 2021-07-26)
PROC: 0UQMXZZ Repair Vulva, External Approach (ICD-10-PCS; 2021-07-26)
PROC: 3E0R3BZ Introduction of Anesthetic Agent into Spinal Canal, Percutaneous Approach (ICD-10-PCS; 2021-07-26)
PROC: 00HU33Z Insertion of Infusion Device into Spinal Canal, Percutaneous Approach (ICD-10-PCS; 2021-07-26)
DX: O77.0 Labor and delivery complicated by meconium in amniotic fluid (principal); Z20.822 Contact with and (suspected) exposure to COVID-19; D62 Acute posthemorrhagic anemia; Z60.2 Problems related to living alone; Z82.49 Family history of ischemic heart disease and other diseases of the circulatory system; Z83.3 Family history of diabetes mellitus; O70.1 Second degree perineal laceration during delivery; O71.82 Other specified trauma to perineum and vulva; Z3A.40 40 weeks gestation of pregnancy; Z37.0 Single live birth; O90.81 Anemia of the puerperium
CPT/HCPCS: 36415; 59020; 59025; 85014; 85018; 85027; 86592; 86850; 86900; 86901; 99211; G0378; G0463; J0290; J2590; J7120; U0003